=== PATIENT | female | born 1955 | race Caucasian/White ===

== ENCOUNTER 2024-08-14 22:02 | Emergency (ER) | payer SELFPAY ==
[~2024-08-14] VITALS: Ht 152.4 cm; Wt 82.0 kg
[2024-08-14 22:15] VITALS: BP 140/76; PULSE 98; RESP 16; TEMP 98.3; O2SAT 98
== END 2024-08-15 01:16 | disposition left against medical advice (07) ==
LOC: ER 22:02
DX: R51.9 Headache, unspecified (principal); Z53.21 Procedure and treatment not carried out due to patient leaving prior to being seen by health care provider